=== PATIENT | male | born 1965 | race Caucasian/White ===

== ENCOUNTER → 2017-12-14 | Outpatient (CLI) | payer BC, OTHER ==
[~2017-12-14] VITALS: Ht 175.3 cm; Wt 78.0 kg
[~2017-12-14] MED LIST: ASPIRIN325 PO; ATORVASTATIN CA40 MG PO; PROTONIX40 M1 PO
--- NOTE | ~2017-12-14 | EKG ---
[address] [address] ELECTROCARDIOGRAM REPORT Name: MARISOL NORMAN [facility] #: [facility]#: [id number] Admission: 12/14/17 Attend Phys: Raman Farrar MD Discharge: Date of : 61 Report #: [id number] THIS REPORT FOR: //name// [facility] Test Date: 2017-12-14 Test Time: 08:47:05 Pat Name: MARISOL NORMAN Department: Room: Gender: Diet Aide: : 1965 Requested By: Raman Farrar Order Number: [id number] MD: José Dunlap Measurements Intervals [place] Rate: 58 P: 24 VT: 136 QRS: 42 QRSD: 96 T: 18 QT: 449 QTc: 442 Interpretive Statements Sinus bradycardia Otherwise normal tracing No previous ECG available for comparison Electronically Signed On 12-14-2017 8:48:53 CDT by José Dunlap [email or web address] <ELECTRONICALLY SIGNED> By: José Dunlap MD, [facility] 12/14/17 0848 0847 0847 José Dunlap MD, FAC /EPI
--- NOTE | ~2017-12-14 | CATHLAB ---
[facility] [address] [place] [address] INVASIVE PROCEDURE REPORT Name: EMERSONMARISOL MORALES Room #: REG [facility]#: [id number] Admission: 12/14/17 Attend Phys: Raman Farrar MD Discharge: Date of : 61 Date of Service: 12/14/17 1346 Report #: [id number] THIS REPORT FOR: //name// APPROVED REPORT Study performed: 12/14/2017 09:33:15 Patient Details Patient Status: Out-Patient Room #: The patient is a 52 year-old male Event Personnel Raman Farrar Rheologist, Eddie Acosta RN, Laura Vogt Sandifer, David Monitor Procedures Performed Art Access - R femoral artery* Left Heart Cath w/or w/o Coronaries [id number] [facility] [address] Initial Mod Sed Same Phys/QHP Gr5y 423455 90073 Mod Sed Same Phys/QHP Ea [id number] Hemostasis with Manual pressure Indication Dyspnea, Chest pain Risk Factors Hypercholesterolemia, Coronary Artery DiseaseHypertension Previous Procedures/Diagnoses Previous PCI Procedure Narrative The patient was brought electively to the Cardiac Catheterization Laboratory and was prepped and draped in a sterile manner. A PINNACLE 4FR Sheath #[id number] sheath was inserted into the RFA^. Coronary angiography was performed using coronary diagnostic catheters. The right coronary system was accessed and visualized with a JR 4 catheter. The left coronary system was accessed and visualized with a JL 4 catheter. The left ventricle was accessed and visualized with a Pigtail catheter. Left ventricular/Aortic Valve gradient assessed via catheter pullback. Left ventriculogram was performed in RUIZ projection. Hemostasis was obtained with manual pressure following sheath removal without any complications. The patient tolerated the procedure well and there were no complications associated with the procedure. There was no hematoma. [facility] [address] [place] [address] INVASIVE PROCEDURE REPORT Name: MARISOL NORMAN Room #: REG [facility]#: [id number] Admission: 12/14/17 Attend Phys: Raman Farrar MD Discharge: Date of : 61 Date of Service: 12/14/17 1346 Report #: [id number] Intraoperative Conscious Sedation Sedation start time: 10:09 Case end Time: 10:32 Fluoro Time: 1.48 minutes Dose: DAP 2441 cGycm2 300 mGy Contrast Type and Amount: Omnipaque 75 ml Coronary Angiography The patient's coronary anatomy is right dominant. Diagnostic Cath Left Main patent vessel, with no flow-limiting lesions. LAD There is mild disease in the proximal and mid segments, 30%. There is a stent to the mid segment, widely patent with minimal restenosis. Diagonal 1 Patent vessel, with no flow-limiting lesions. Circumflex Has mild disease in the proximal segment. Supplies one moderate size OM vessel. OM1 Moderate size caliber vessel, supplies multiple branches as it travels down the lateral wall. There are no flow-limiting lesions. Right Coronary Dominant vessel, with mild disease in the proximal segment. There is a stent in the mid segment, widely patent with minimal restenosis. R PDA Patent vessel, with no flow-limiting lesions. RPLV Patent vessel, with no flow-limiting lesions. Left Ventriculography The left ventricle is normal in size with normal contractility. The left ventricular ejection fraction is estimated to be >55%. Hemodynamics The aortic pressure is 108/63 mmHg with a mean of 54 mmHg. The left ventricular pressure is 115/2 mmHg with a mean of mmHg. The left ventricular end diastolic pressure is 18 mmHg. Conclusion 1. Patent stents in the mid LAD and mid RCA. 2. Mild disease in the LAD. [facility] [address] [place] [address] INVASIVE PROCEDURE REPORT Name: SONIAMARISOL HARRIS Room #: REG [facility]#: [id number] Admission: 12/14/17 Attend Phys: Raman Farrar MD Discharge: Date of : 61 Date of Service: 12/14/17 1346 Report #: [id number] 3. Normal LV systolic function. 4. Recommend risk factor management. <ELECTRONICALLY SIGNED> By: Raman Farrar MD 12/14/17 1346 1346 1346 Raman Farrar MD /XIOMARA
[2017-12-14 08:39] VITALS: BP 142/87
[2017-12-14 09:10] LABS: HEMATOCRIT 42.6 % (42.0-52.0); HEMOGLOBIN 14.4 gm/dL (14.0-18.0); MCH 30.1 pg (26.0-34.0); MCHC 33.9 g/dL (28.0-37.0); MCV 88.8 fL (80.0-100.0); RBC 4.8 mil/uL (4.50-6.00); RDW 13.2 % (10.5-14.5); WBC 4.8 thou/uL (4.0-11.0)
[2017-12-14 09:20] LABS: CALCIUM 9.2 mg/dL (8.5-10.1); CREATININE 1.2 mg/dL (0.7-1.3); POTASSIUM 4.6 mmol/L (3.5-5.1)
== END | disposition home or self-care (01) ==
LOC: CATH 08:19
PROVIDERS: Internal Medicine Cardiovascular Disease
DX: I25.10 Atherosclerotic heart disease of native coronary artery without angina pectoris (principal); I10 Essential (primary) hypertension; E78.00 Pure hypercholesterolemia, unspecified; K21.9 Gastro-esophageal reflux disease without esophagitis; Z82.49 Family history of ischemic heart disease and other diseases of the circulatory system; Z95.5 Presence of coronary angioplasty implant and graft; Z79.82 Long term (current) use of aspirin; Z79.899 Other long term (current) drug therapy